=== PATIENT | male | born 1950 | race Caucasian/White ===

== ENCOUNTER 2016-08-26 07:58 | Day surgery (SDC) | payer MEDICARE ==
[~2016-08-26] VITALS: Ht 162.6 cm; Wt 69.9 kg
[~2016-08-26 07:58] MED LIST: ALBU90AE IH; ALLO300T2 PO; BENZ100C86 PO; BUPR150T3 PO; CHOL500010 PO; LEVO25TA7 PO; LIDO20SO MM; METF10002 PO; NITR0.4T3 SL; OMEP40CA34 PO; RISO02 PO; SIMV40TA5 PO; TRAZ-129 PO
[2016-08-26] MEDS ORDERED: BUPIVACAINE HCL 0.5% (5MG/ML) 50ML ONE (08:18)
[2016-08-26] MEDS ORDERED: SKIN ADHESIVE 0.7 GM EA TOP ONE (08:28)
[2016-08-26 09:16] LABS: CARBON DIOXIDE 25 mEq/L (21-32); CHLORIDE 103 mEq/L (98-107)
[2016-08-26] MEDS ORDERED: SODIUM CHLORIDE 0.9% 1,000 ML IV SCH (09:25)
[2016-08-26] MEDS ORDERED: FENTANYL CITRATE/PF 50MCG/ML 2ML VIAL ONE (10:08)
[2016-08-26] MEDS ORDERED: MIDAZOLAM HCL 2 MG/2 ML VIAL ONE (10:09)
[2016-08-26] MEDS ORDERED: SUCCINYLCHOLINE CHLORIDE 200MG/10ML VIAL IV ONE (10:25)
[2016-08-26] MEDS ORDERED: LIDOCAINE HCL 1% 20ML VIAL (Pyxis) INJ ONE (10:25)
[2016-08-26] MEDS ORDERED: PROPOFOL 200MG/20ML VIAL IV ONE (10:25)
[2016-08-26] MEDS ORDERED: CEFAZOLIN SODIUM 1000MG/VIAL ONE (10:25)
[2016-08-26] MEDS ORDERED: SODIUM CHLORIDE 0.9% 10ML VIAL ONE (10:25)
[2016-08-26] MEDS ORDERED: ROCURONIUM BROMIDE 10MG/ML VIAL 5ML IV ONE (10:25)
[2016-08-26] MEDS ORDERED: GLYCOPYRROLATE 0.2 MG/ML 2ML VIAL ONE (10:26)
[2016-08-26] MEDS ORDERED: ONDANSETRON HCL 4MG/2ML VIAL ONE (10:26)
[2016-08-26] MEDS ORDERED: ETOMIDATE 2MG/ML 10ML VIAL IV ONE (10:26)
[2016-08-26] MEDS ORDERED: DEXAMETHASONE 4MG/ML 1ML VIAL ONE (10:26)
[2016-08-26] MEDS ORDERED: NEOSTIGMINE METHYLSULFATE 1MG/ML 10 ML VIAL ONE (10:26)
[2016-08-26] MEDS ORDERED: LABETALOL HCL 20MG/4ML CARPUJECT IV PRN (10:45)
[2016-08-26] MEDS ORDERED: ONDANSETRON HCL 4MG/2ML VIAL IV PRN (10:45)
[2016-08-26] MEDS ORDERED: HYDROMORPHONE HCL/PF 2MG/ML CPJ IV PRN (10:45)
[2016-08-26] MEDS: MEPERIDINE HCL/PF 25MG/ML CPJ IV PRN ×2 (11:42→12:46)
[2016-08-26] MEDS ORDERED: ASPI-986 PO (11:52)
[2016-08-26] MEDS ORDERED: PRED5DRO7 OP (11:52)
[2016-08-26] MEDS ORDERED: IVAB5TAB PO (11:52)
[2016-08-26] MEDS ORDERED: OLOPATADINE 0.2% (11:52)
[2016-08-26] MEDS ORDERED: FURO-151 PO (11:52)
[2016-08-26 12:46] VITALS: BP 145/89
== END 2016-08-26 16:00 | disposition home or self-care (01) ==
LOC: OR 07:58
PROVIDERS: ATTEND Surgery
DX: K40.90 Unilateral inguinal hernia, without obstruction or gangrene, not specified as recurrent (principal); I11.9 Hypertensive heart disease without heart failure; E11.9 Type 2 diabetes mellitus without complications; J44.9 Chronic obstructive pulmonary disease, unspecified; Z85.01 Personal history of malignant neoplasm of esophagus; Z98.890 Other specified postprocedural states; Z95.810 Presence of automatic (implantable) cardiac defibrillator
CPT/HCPCS: 36415; 49505; 71010; 80048; 82962; 88302; A4216; C1781; G0168; J0330; J0690; J1100; J2175; J2250; J2405; J2710; J3010; J3490; J7040; J7120; J2704